=== PATIENT | female | born 1965 | race Caucasian/White ===

== ENCOUNTER 2016-11-19 17:14 | Emergency (ER) | payer OTHER ==
[~2016-11-19] VITALS: Ht 170.2 cm; Wt 125.6 kg
[~2016-11-19 17:14] MED LIST: ABILIFY10 MG PO; ALBUTEROL SULF8.5 GM IH; AMLODIPINE BESYL5 MG PO; BACTRIM,SEPT1 TABLET PO; HYDROCHLOROTH12.5 M2 PO; HYDROXYZINE HCL50 MG PO; LEXAPRO10 MG PO; LEXAPRO20 MG PO; LOPRESSOR100 M1 PO; LOPRESSOR50 MG PO; LORATADINE10 M2 PO; LORTAB 5-325 M1 EACH PO; MECLIZINE HCL25 M3; NEXIUM40 MG PO; NITROSTAT0.4 MG SL; PROAIR HFA8.5 GM IH; RANITIDINE HCL150 MG PO; SINGULAIR10 MG PO; TEMAZEPAM15 M1 PO; TOPROL XL100 MG PO; TRAZODONE HCL100 MG PO; VOLTAREN75 MG PO; ZESTORETIC 20-1 EAC1 PO; ZESTRIL20 MG PO
[2016-11-19 17:19] VITALS: BP 198/116
== END 2016-11-19 18:46 | disposition left against medical advice (07) ==
LOC: EME 17:14
DX: M54.9 Dorsalgia, unspecified (principal); Z53.21 Procedure and treatment not carried out due to patient leaving prior to being seen by health care provider

== ENCOUNTER 2017-07-01 17:08 | Emergency (ER) | payer OTHER ==
[~2017-07-01] VITALS: Ht 170.2 cm; Wt 127.9 kg
[2017-07-01] MEDS ORDERED: FLEXERIL10 MG PO (21:49)
[2017-07-01] MEDS ORDERED: NAPROSYN500 MG PO (21:49)
[2017-07-01 21:59] VITALS: BP 187/98
== END 2017-07-01 22:03 | disposition home or self-care (01) ==
LOC: EME 17:08
DX: S86.912A Strain of unspecified muscle(s) and tendon(s) at lower leg level, left leg, initial encounter (principal); K21.9 Gastro-esophageal reflux disease without esophagitis; I10 Essential (primary) hypertension; J45.909 Unspecified asthma, uncomplicated; F17.200 Nicotine dependence, unspecified, uncomplicated
CPT/HCPCS: 93971; 99281; 99284